=== PATIENT | male | born 1995 | race Caucasian/White ===

== ENCOUNTER 2018-12-30 17:54 | Outpatient (REF) | payer MEDICAID, SELFPAY ==
[2018-12-30 22:09] LABS: HCT 43.9 % (40.0-50.0); HGB 15.6 g/dL (13.5-17.5); Mean Corp. HGB Concentration 35.5 g/dL (32.0-36.0); Mean Corpuscular Hemoglobin 31.5 pg (27.0-33.0); Mean Corpuscular Volume 88.5 fL (80-95); Mean Platelet Volume 12.5 fL (8.0-11.0); Platelet Count 151 x1000/uL (130-400); RBC 4.96 m/cumm (4.50-6.00); RBC Distribution Width 12.7 % (11.8-14.1); White Blood Cell Count 6.15 k/cumm (4.4-10.8)
[2018-12-30 22:31] LABS: Hemoglobin A1C 5.3 % (4.5-6.2)
[2018-12-30 23:03] LABS: ALT 31 U/L (12-78); AST 26 U/L (15-37); Alkaline Phosphatase 86 U/L (46-116); Anion Gap 15.5 mmol/L (3-11); BUN 13 mg/dL (7-18); Bilirubin, Total 0.6 mg/dL (0.2-1.0); CO2 23.5 mmol/L (21.0-32.0); CREATININE 0.94 mg/dL (0.70-1.30); Calcium 9.3 mg/dL (8.5-10.1); Calculated LDL 71 mg/dL; Chloride 104 mmol/L (98-107); Cholesterol 122 mg/dL (50-200); GGT 83 U/L (15-85); Glucose 81 mg/dL (70-100); HDL Cholesterol 29 mg/dL (40-60); Potassium 3.7 mmol/L (3.5-5.1); Sodium 143 mmol/L (136-145); TSH 7.71 uIU/mL (0.358-3.74); Total Protein 7.7 g/dL (6.4-8.2); Triglyceride 111 mg/dL (30-150)
[2018-12-31 17:01] LABS: FREE T4 0.99 ng/dL (0.76-1.46)
== END 2018-12-30 18:14 ==
LOC: NCHCN 17:54
PROVIDERS: PCP Nurse Practitioner Family; Visit Provider Nurse Practitioner Family
DX: F41.1 Generalized anxiety disorder (principal); I44.0 Atrioventricular block, first degree; Z13.220 Encounter for screening for lipoid disorders; Q24.9 Congenital malformation of heart, unspecified; Z13.29 Encounter for screening for other suspected endocrine disorder; Z13.1 Encounter for screening for diabetes mellitus
CPT/HCPCS: 80053; 80061; 83721; 85027; 82977; 83036; 84439; 84443

== ENCOUNTER 2019-01-05 10:30 | Outpatient (REF) | payer MEDICAID, SELFPAY ==
[2019-01-05 23:26] LABS: INR 1.1 (0.9-1.1)
[2019-01-07 10:05] LABS: Thyroglobulin Antibody 140 U/mL (<61); Thyroperoxidase Antibody >1300 U/mL (<61)
== END 2019-01-05 10:50 ==
LOC: NCHCN 10:30
PROVIDERS: PCP Nurse Practitioner Family; Visit Provider Nurse Practitioner Family
DX: Z13.29 Encounter for screening for other suspected endocrine disorder (principal); F41.1 Generalized anxiety disorder; I44.0 Atrioventricular block, first degree; Z13.220 Encounter for screening for lipoid disorders
CPT/HCPCS: 85610; 86376; 86800

== ENCOUNTER 2019-06-16 14:42 | Outpatient (REF) | payer MEDICAID, SELFPAY ==
[2019-06-16 22:34] LABS: INR 1.2 (0.9-1.1); Prothrombin Time 11.6 sec (9.3-11.0)
[2019-06-16 22:52] LABS: TSH (W/Ref FT4) 2.45 uIU/mL (0.36-3.74)
[2019-06-16 22:58] LABS: GGT 116 U/L (15-85)
== END 2019-06-16 15:02 ==
LOC: NCHCN 14:42
PROVIDERS: PCP Nurse Practitioner Family; Visit Provider Nurse Practitioner Family
DX: R63.4 Abnormal weight loss (principal); E06.3 Autoimmune thyroiditis; Q24.9 Congenital malformation of heart, unspecified; Q20.4 Double inlet ventricle
CPT/HCPCS: 82977; 84443; 85610

== ENCOUNTER 2020-12-06 08:54 | Outpatient (REF) | payer MEDICAID, SELFPAY ==
[2020-12-06 14:10] LABS: ALT 38 U/L (16-63); AST 30 U/L (15-37); Albumin 4.9 g/dL (3.4-5.0); Alkaline Phosphatase 87 U/L (46-116); Anion Gap 8.9 mmol/L (3-11); BUN 10 mg/dL (7-18); Bilirubin, Total 0.8 mg/dL (0.2-1.0); CO2 26.1 mmol/L (21.0-32.0); CREATININE 0.8 mg/dL (0.70-1.30); Calcium 8.6 mg/dL (8.5-10.1); Chloride 101 mmol/L (98-107); Glucose 88 mg/dL (74-106); Potassium 4.2 mmol/L (3.5-5.1); Sodium 136 mmol/L (136-145); TSH 5.05 uIU/mL (0.36-3.74); Total Protein 7.6 g/dL (6.4-8.2)
== END 2020-12-06 08:55 | disposition home or self-care (01) ==
LOC: NCHCN 08:54
PROVIDERS: PCP Nurse Practitioner Family; Visit Provider Nurse Practitioner Family
DX: E03.9 Hypothyroidism, unspecified (principal); Q24.8 Other specified congenital malformations of heart
CPT/HCPCS: 80053; 84443

== ENCOUNTER 2021-03-01 10:48 | Outpatient (REF) | payer MEDICAID, SELFPAY ==
[2021-03-01 15:46] LABS: TSH 4.66 uIU/mL (0.36-3.74)
== END 2021-03-01 10:49 | disposition home or self-care (01) ==
LOC: NCHCN 10:48
PROVIDERS: PCP Nurse Practitioner Family; Visit Provider Nurse Practitioner Family
DX: E03.9 Hypothyroidism, unspecified (principal)
CPT/HCPCS: 84443

== ENCOUNTER 2021-06-02 09:51 | Outpatient (REF) | payer MEDICAID, SELFPAY ==
[2021-06-02 14:49] LABS: HCT 47.3 % (40.0-50.0); HGB 16.5 g/dL (13.5-17.5); MCH 30.8 pg (27.0-33.0); MCHC 34.9 % (32.0-36.0); MCV 88.2 fL (80-95); MPV 12.3 fL (8.0-11.0); Platelet Count 177 10^3/uL (130-400); RBC 5.36 10^6/uL (4.36-5.78); RDW 12.4 % (11.8-14.1); RDW-SD 40.3 fL; WBC 5.15 10^3/uL (4.4-10.8)
[2021-06-02 15:06] LABS: INR 1.1 (0.9-1.1); Prothrombin Time 11.2 sec (9.3-11.0)
[2021-06-02 15:12] LABS: ALT 38 U/L (16-63); AST 28 U/L (15-37); Albumin 4.8 g/dL (3.4-5.0); Alkaline Phosphatase 74 U/L (46-116); Anion Gap 8.6 mmol/L (3-11); BUN 9 mg/dL (7-18); Bilirubin, Total 0.6 mg/dL (0.2-1.0); CO2 26.4 mmol/L (21.0-32.0); CREATININE 0.7 mg/dL (0.70-1.30); Chloride 102 mmol/L (98-107); Glucose 81 mg/dL (74-106); Potassium 4.1 mmol/L (3.5-5.1); Sodium 137 mmol/L (136-145); TSH 1.59 uIU/mL (0.36-3.74); Total Protein 7.3 g/dL (6.4-8.2)
== END 2021-06-02 09:52 | disposition home or self-care (01) ==
LOC: NCHCN 09:51
PROVIDERS: PCP Nurse Practitioner Family; Visit Provider Nurse Practitioner Family
DX: E03.9 Hypothyroidism, unspecified (principal); Q24.9 Congenital malformation of heart, unspecified; F32.9 Major depressive disorder, single episode, unspecified
CPT/HCPCS: 80053; 85027; 84443; 85610

== ENCOUNTER 2022-06-05 18:28 | Outpatient (REF) | payer MEDICAID, SELFPAY ==
[2022-06-05 17:27] LABS: ALT 27 U/L (16-63); AST 37 U/L (15-37); Albumin 4.6 g/dL (3.4-5.0); Alkaline Phosphatase 70 U/L (46-116); Anion Gap 8.5 mmol/L (3-11); BUN 9 mg/dL (7-18); Bilirubin, Total 0.6 mg/dL (0.2-1.0); CO2 25.5 mmol/L (21.0-32.0); CREATININE 0.9 mg/dL (0.70-1.30); Calcium 9.2 mg/dL (8.5-10.1); Chloride 105 mmol/L (98-107); Estimated GFR 122.31 (mL/min/1.73m2); Glucose 83 mg/dL (74-106); Hemoglobin A1C 5.1 % (<5.7); Potassium 3.8 mmol/L (3.5-5.1); Sodium 139 mmol/L (136-145); TSH 2.59 uIU/mL (0.36-3.74); Total Protein 7.5 g/dL (6.4-8.2)
== END 2022-06-05 18:29 | disposition home or self-care (01) ==
LOC: NCHCN 18:28
PROVIDERS: PCP Nurse Practitioner Family; Visit Provider Nurse Practitioner Family
DX: E03.9 Hypothyroidism, unspecified (principal); Q24.9 Congenital malformation of heart, unspecified; Z13.1 Encounter for screening for diabetes mellitus
CPT/HCPCS: 80053; 83036; 84443

== ENCOUNTER 2024-02-17 16:31 | Outpatient (REF) | payer MEDICAID, SELFPAY ==
[2024-02-17 18:02] LABS: Hemoglobin A1C 5.2 % (<5.7)
[2024-02-17 18:03] LABS: ALT 44 U/L (16-63); AST 36 U/L (15-37); Albumin 4.8 g/dL (3.4-5.0); Alkaline Phosphatase 60 U/L (46-116); Anion Gap 8.9 mmol/L (3-11); BUN 13 mg/dL (7-18); Bilirubin, Total 0.85 mg/dL (0.2-1.0); CO2 27.1 mmol/L (21.0-32.0); CREATININE 0.8 mg/dL (0.70-1.30); Calcium 9.4 mg/dL (8.5-10.1); Chloride 101 mmol/L (98-107); Estimated GFR 125.17 (mL/min/1.73m2); Glucose 82 mg/dL (74-106); Potassium 3.9 mmol/L (3.5-5.1); Sodium 137 mmol/L (136-145); TSH 1.09 uIU/Ml (0.36-3.74); Total Protein 7.7 g/dL (6.4-8.2)
== END 2024-02-17 16:32 | disposition home or self-care (01) ==
LOC: NCHCN 16:31
PROVIDERS: PCP Nurse Practitioner Family; Visit Provider Nurse Practitioner Family
DX: E03.9 Hypothyroidism, unspecified (principal); Z13.1 Encounter for screening for diabetes mellitus; Q24.8 Other specified congenital malformations of heart
CPT/HCPCS: 80053; 83036; 84443

== ENCOUNTER 2025-02-08 18:01 | Outpatient (REF) | payer MEDICAID, SELFPAY ==
[2025-02-08 17:57] LABS: Hemoglobin A1C 4.9 % (<5.7)
[2025-02-08 19:01] LABS: ALT 36 U/L (16-63); AST 26 U/L (15-37); Albumin 5.0 g/dL (3.4-5.0); Alkaline Phosphatase 59 U/L (46-116); Anion Gap 8.0 mmol/L (3-11); BUN 12 mg/dL (7-18); Bilirubin, Total 1.2 mg/dL (0.2-1.0); CO2 27.0 mmol/L (21.0-32.0); Calcium 9.0 mg/dL (8.5-10.1); Calculated LDL 67 mg/dL (<100); Chloride 98 mmol/L (98-107); Cholesterol 131 mg/dL (<200); Estimated GFR 105.79 (mL/min/1.73m2); Glucose 55 mg/dL (74-106); HDL Cholesterol 54 mg/dL (>or=40); Potassium 3.9 mmol/L (3.5-5.1); Sodium 133 mmol/L (136-145); TSH 1.43 uIU/mL (0.36-3.74); Total Protein 7.6 g/dL (6.4-8.2); Triglyceride 54 mg/dL (<150)
[2025-02-09 11:44] LABS: HIV-1/2 Ag & Ab Screen Negative (Negative)
[2025-02-10 15:57] LABS: Hepatitis C Ab w Rflx HCV PCR Negative (Negative)
== END 2025-02-08 18:02 | disposition home or self-care (01) ==
LOC: NCHCN 18:01
PROVIDERS: PCP Nurse Practitioner Family; Visit Provider Nurse Practitioner Family
DX: Z13.1 Encounter for screening for diabetes mellitus (principal); Z13.220 Encounter for screening for lipoid disorders; E03.9 Hypothyroidism, unspecified; Z11.59 Encounter for screening for other viral diseases; Q24.9 Congenital malformation of heart, unspecified
CPT/HCPCS: 80053; 80061; 86803; 87389; 83036; 84443